=== PATIENT | male | born 1995 | race Hispanic/Latino ===

== ENCOUNTER 2018-12-29 07:49 | Emergency (ER) | payer BC ==
--- NOTE | 2018-12-29 08:51 | RAD ---
RADIOGRAPH CHEST 2 VIEWS: HISTORY: 23-year-old male with cough. FINDINGS: The lungs are clear. The cardiomediastinal silhouette and hilar shadows are normal. There is no pleur al effusion. The osseous structures appear normal. There is no pneumothorax. IMPRESSION: Normal. jn [] POS: [facility]
== END 2018-12-29 09:28 | disposition home or self-care (01) ==
LOC: ERS 07:49
DX: B34.9 Viral infection, unspecified (principal)
CPT/HCPCS: 71046; 87081; 87430; 87804

== ENCOUNTER 2021-08-18 11:14 | Emergency (ER) | payer BC | END 2021-08-18 16:36 | disposition home or self-care (01) | LOC: ERS 11:14 | DX: S46.911A Strain of unspecified muscle, fascia and tendon at shoulder and upper arm level, right arm, initial encounter (principal); M62.838 Other muscle spasm; X50.9XXA Other and unspecified overexertion or strenuous movements or postures, initial encounter ==